=== PATIENT | male | born 1950 | race Caucasian/White ===

== ENCOUNTER 2024-07-29 08:21 | Outpatient (CLI) | payer MEDICARE, SELFPAY ==
--- OUTSIDE RECORDS SUMMARY | 2024-07-29 08:31 | XMS_ITS | Clinical Summary ---
Author Organization [email or web address] Address [address] [facility] [place] [address] Care Team Providers Care Help Desk Supervisor Name Role Phone Franck Ruvalcaba MD Unavailable [phone] Johan Montiel MD Primary Care Provider Source Comments [facility],non-owned Affiliates and Associated Physician Practices is amultiple site organization consisting of ambulatory clinics and hospital sitesin [place], [place], [place] and [place]. This disclosure is being madepursuant to the Care Everywhere program and may not contain all information available regarding this patient. Last updated 18.[facility] Allergies Active Allergy Reactions Criticality Noted Date Comments Penicillins Rash Medium 07/27/2018 Medications * Be aware that medications may not be up to date on this document. Alwaysverify current medications with the patient. Medication Sig Dispensed Refills Start Date End Date Status fluticasone-salmetero l (ADVAIR) 250-50 MCG/DOSE inhaler Inhale 1 puff by mouth 2 times daily Active albuterol HFA (PROVENTIL;VENTOLIN;P ROAIR) 108 (90 Base) MCG/ACT inhaler 10/26/2020 Active fluticasone propionate (FLONASE) 50 MCG/ACT nasal spray 11/30/2020 Active carvedilol (COREG) 6.25 MG tablet TAKE ONE TABLET BY MOUTH TWICE A DAY 180 tablet 3 01/09/2021 Active lisinopril (PRINIVIL;ZESTRIL) 5 MG tablet Take 0.5 (one-half) tablet by mouth 2 times daily 90 tablet 3 01/08/2021 Active rivaroxaban (XARELTO) 20 MG tablet Take 1 (one) tablet by mouth daily with food 30 tablet 1 05/26/2021 Active Active Problems Problem Noted Date Diagnosed Date A-fib Non-ischemic cardiomyopathy Persistent atrial fibrillation Immunizations Name Administration Dates Next Due Covid Pfizer primary monoval ent 12+ yr 0.3mL Purple cap 07/19/2020,06/21/2020 Family History Medical History Relation Name Comments High Cholesterol Father High Cholesterol Mother CAD (Coronary Artery Disease) Paternal Grandfather Relation Name Status Comments Father valve replaceme nt Maternal Grandfather Maternal Grandmother Mother Paternal Grandfather (Age 71) PR Paternal Grandmother Social History Tobacco Use Types Packs/Day Years Used Date Smoking Tobacco: Former Cigarettes Q uit: 09/25/2019 Smokeless Tobacco: Never Tobacco Cessation:Ready to Q uit: Yes; Counseling Given: Yes Alcohol Use Standard Drinks/Week Comments Yes 0 (1 standard drink = 0.6 oz pur e alcohol) Occasional Sex and Gender Information Value Date Recorded Sex Assigned at Not on file Gender Identity Not on file Sexual Orientation Not on file Last Filed Vital Signs Vital Sign Reading Time Taken Comments Blood Pressure 90/60 12/19/2020 3:46 PM CDT Pulse 82 12/19/2020 3:46 PM CDT Temperature 36.3 C (97.3 F) 12/19/2020 3:46 PM CDT Respiratory Rate 10 10/14/2018 9:30 AM CDT Oxygen Saturation 99% 12/19/2020 3:46 PM CDT Inhaled Oxygen Concentration - - Weight 80.5 kg (177 lb 6.4 oz) 12/19/2020 3:46 P M CDT Height 172.7 cm (5' 8 ) 12/19/2020 3:46 PM CDT Body Mass Index 26.97 12/19/2020 3:46 PM CDT Plan of Treatment Health Maintenance Due Date Last Done Comments COLOGUARD (AGES 45-75) - COL ON CA SCREENING 1950 COLON MONITORING 1950 COLONOSCOPY - COLON CA SCREENING 1950 CT COLONOGRAPHY - COLON CA SCREENING 1950 Colorectal Cancer Screening 1950 FIT - COLON CA SCREENING 1950 FLEX SIG - COLON CA SCREENING 1950 LIPID TESTING 1950 MEDICARE AWV 12 MONTHS 1950 HEPATITIS C SCREENING 03/11/1968 DTAP/TDAP/TD VACCINES (1 - Tdap) 1969 PNEUMOCOCCAL VACCINE 50+ (1 of 1 - PCV) 2000 ZOSTER VACCINE (1 of 2) 2000 AAA SCREENING 2015 SCREENING FOR DIABETES 10/14/2021 9, 08/12/2018 COVID-19 VACCINE (3 - 2023-2 5 season) 2023 07/19/2020, 06/21/2020 INFLUENZA VACCINE (#1) 2023 DEPRESSION SCREENING 04/26/2024 Respiratory Syncytial Virus (RSV) Vaccine Pt: or over 60 yrs (1 - 1-dose 75+ series) 2025 HEPATITIS B VACCINE Aged Out No longe r eligible based on patient's age to complete this topic HIB VACCINE Aged Out No longer eligi ble based on patient's age to complete this topic HPV VACCINE Aged Out No longer eligi ble based on patient's age to complete this topic MENINGOCOCCAL (Group B) VACCINE SHARED DECISION-MAKING Aged Out No longer eligible based on patient's age to complete this topic MENINGOCOCCAL GROUPS A/C/Y/W VACCINE Aged Out No longer eligible b ased on patient's age to complete this topic Procedures Procedure Name Priority Date/Time Associated Diagnosis Comments BASIC METABOLIC PANEL (CALCIUM TOTAL) STAT 10/14/2018 7:26 AM CDT Atrial fibrillation, unspecified type from Last 3 Months or Most Recently Relevant to Health Maintenance Results * (ABNORMAL) BASIC METABOLIC PANEL (CALCIUM TOTAL) (10/14/2018 7:26 AM CDT) [facility] Glucose 99 74 - 106 mg/dL 10/14/2018 8:03 AM CDT [facility] Sodium 141 136 - 145 mmol/L 10/14/2018 8:03 AM CDT [facility] Potassium 4.2 3.5 - 5.1 mmol/L 10/14/2018 8:03 AM T [facility] Chloride 108(H) 98 - 107 mmol/L 10/14/2018 8:03 AM T [facility] CO2 23 23 - 31 mmol/L 10/14/2018 8:03 AM T [facility] Calcium 9.6 8.4 - 10.2 mg/dL 10/14/2018 8:03 AM CDT [facility] Anion Gap 10 8 - 16 mmol/L 10/14/2018 8:03 AM CDT [facility] BUN 16 8.4 - 25.7 mg/dL 10/14/2018 8:03 AM CDT [facility] Creatinine 0.93 0.73 - 1.18 mg/dL 10/14/2018 8:03 AM CDT [facility] eGFR by MDRD >60 >60 mL/min/1.7 3m2 10/14/2018 8:03 AM CDT [facility] eGFR by MDRD >60 >60 mL/min/1.7 3m2 10/14/2018 8:03 AM CDT [facility] Blood BLOOD SPECIMEN / Unknown Venipuncture / Unknown 10/14/2018 7:26 AM CDT 10/14/2018 7:39 AM CDT Narrative [facility] - 10/14/2018 8:03 AM CDT Attention clinician: BUN Reference Range has changed. Franck Ruvalcaba MD LAB - CHEMISTRY KRISTINA CROSS [facility] Organization Address City/State/ZIP Co de Phone Number [facility] [address] [place] [address] from Last 3 Months or Most Recently Relevant to Health Maintenance Advance Directives * Full Code (Latest Code Status on File) Date Activated Date Inactivated Comments 08/12/2018 9:51 AM 08/12/2018 1:45 PM Care Teams Help Desk Supervisor Relationship Specialty Start Date End Date Johan Montiel MD [address] [place] [address] PCP - General Family Medicine 06/24/20 Franck Ruvalcaba MD Housing Property Manager Cardiology 01/19/19
--- OUTSIDE RECORDS SUMMARY | 2024-07-29 08:31 | XMS_ITS | Encounter Summary ---
Author Organization [facility] Address [address] [facility] [facility] [place] [address] Care Team Providers Care Beef Cattle Specialist Name Role Phone Bobby Wilkins MD Primary Care Provider [phone] Franck Ruvalcaba MD Unavailable [phone] Johan Montiel MD Primary Care Provider [phone] Encounter Details Date Type Department Care Team (Late st Contact Info) Description 01/02/2020 Telephone [facility] [address] [place] [address] Franck Ruvalcaba MD [address] [facility] [address] [place] [address] Social History Tobacco Use Types Packs/Day Years Used Date Smoking Tobacco: Former Cigarettes Q uit: 09/25/2019 Smokeless Tobacco: Never Alcohol Use Standard Drinks/Week Comments Yes 0 (1 standard drink = 0.6 oz pur e alcohol) Occasional Sex and Gender Information Value Date Recorded Sex Assigned at Not on file Gender Identity Not on file Sexual Orientation Not on file COVID-19 Exposure Response Date Recorded In the last month, have you been in contact with someone who was confirmed or suspected to have Coronavirus / COVID-19? No / Unsure 12/22/2019 3:26 PM CDT documented as of this encounter Plan of Treatment Not on file documented as of this encounter Visit Diagnoses Not on filedocumented in this encounter Care Teams Beef Cattle Specialist Relationship Specialty Start Date End Date Bobby Wilkins MD [address] [place] [phone] PCP - General Family Medicine 07/20/18 06/23/20 Johan Montiel MD [address] [place] [phone] PCP - General Family Medicine 06/24/20 Franck Ruvalcaba MD [address] [place] [phone] Online Marketing Specialist Cardiology 01/19/19 documented as of this encounter
--- OUTSIDE RECORDS SUMMARY | 2024-07-29 08:31 | XMS_ITS | Data Portability ---
Author Organization [facility], [address] [facility] ([place]) Address [address] [place] [address] Care Team Providers Care Team Assembly Line Machine Operator Name Role Phone JACKSON GUTIÉRREZ Primary Care Provider Assessment Encounter Date Assessment Date Assessment LastModified by Organization Details LastModified Time 05/25/2024 05/25/2024 1. The following diagnosis is categorized as a CHRONIC ILLNESS (STABLE/At Pt Goal): Benign nevi. We discussed the importance of watching for new and/or changing lesions. We discussed the worrisome changes to watch for that could indicate a melanoma. We discussed the importance of photoprotection using protective clothing and sunscreen with OTC SPF 30 or higher. Avoid peak hours of sun exposure (10am-3pm). We discussed the importance of regular self-skin examinations. 2. The following diagnosis is categorized as a SELF-LIMITED OR MINOR PROBLEM: We discussed the fact that lentigines are actinically induced and that they are benign. We discussed the fact that they should be watched carefully for change. We discussed the importance of photoprotection using protective clothing and sunscreen with SPF thirty or higher on a regular basis. 3. The following diagnosis is categorized as a SELF LIMITED OR MINOR PROBLEM: Seborrheic keratoses: We discussed the fact that these are benign lesions requiring no treatment. We discussed the fact that removal would be considered a cosmetic procedure and would not be covered by insurance. The patient was advised that more such lesions may develop. The patient is not bothered by the lesions and does not wish to have them treated. We will observe. OTC tx for SK: wart removers, dermabrasion, 35% hydrogen peroxide daily with paint or makeup brush. 4. The following diagnosis is categorized as a CHRONIC ILLNESS : History of non-melanoma skin cancer. We discussed the importance of regular skin examinations by a physician as well as monthly self-skin examinations. No evidence of recurrence in previously treated areas. We discussed the worrisome changes to watch for in skin lesions. We discussed the importance of watching for new and/or changing lesions. We discussed the importance of photoprotection using protective clothing and sunscreen with SPF 30 or higher. Pt was instructed to call the office if develops a lesion which grows or changed rapidly. rtc: 6 months tbs nmsc or sooner prn [email or web address] Not available 05/28/2024 11:16:32 Plan of Treatment Reminders Order Date Submit Date Provider Last Modified By Organization Details Last Modified Time Details Appointments Establish ed Patient 10.EST 2024 01:20P M Dr. Alina Garzon Not available Not available Not available Lab None recorded. Referral None recorded. Procedures None recorded. Surgeries None recorded. Imaging None recorded. Medication Orders clobetaso l 0.05 % topical ointment 2023 024 [email or web address] [facility] [address], [id number], 11/01/2023 15:46:51 Patient TargetsNo targets recorded. Patient Instructions Encounter Date Encounter Id Patient Instructions Last Modified By Organization Details Last Modified Time 11/01/2023 [id number] I asked pt to return 6 month TBSE/nmsc with MD. Pt will call with any questions or concerns in the meantime. [email or web address] Not available 11/01/2023 15:43:57 Reason for Referral None Reported. Problems Name Problem SNOMED Code Status Onset Date Resolution Date Notes Provider Name and Address Organization Details Recorded Time Melanocytic nevus of left lower limb 3607430137245 06 Active 2024 Carly Mena [facility] 5 16:30:57 Atopic dermatitis 22191872 Active 2023 Jessika Quiroz [facility], [facility] 4 15:17:07 Melanocytic nevus of right upper limb 489214024 Active 2023 Carly Mena [facility] 5 16:30:50 Melanocytic nevus of right lower limb 8069718936379 08 Active 2023 Alina Stanford APRN, OFFICE MACHINES TEACHER [address] [place] [address], [phone], [facility] 4 15:41:34 Seborrheic keratosis 296599628 Active 2023 Carly Mena [facility] 5 16:30:59 Lentigo - freckle 346495846 Active 2023 Alina Stanford APRN, OFFICE MACHINES TEACHER [address] [place], [phone], [facility] 4 15:41:39 Problem Notes None recorded. Medical Equipment None Reported. Allergies Allergen ID Allergen Name Allergen Category Reaction Reaction Severity Criticality Documentation Date Start Date Code Code System Note Provider Name and Address Organization Details Recorded Time 559072 Penicilli n Not available Not available Not available Not available 05/24/20232019 97457 RxNorm Not Available Not Available Not Available Medications Name Sig Start Date Stop Date Status Note LastModified by Organization Details LastModified Time carvedilol 6.25 mg tablet active Not Available Not Available Not Available prednisone 10 mg tablet active Not Available Not Available No t Available doxycycline hyclate 100 mg capsule active Not Available Not Available N ot Available clindamycin HCl 300 mg capsule active Not Available Not Available Not Available fluticasone 500 mcg-salmetero l 50 mcg/dose blistr powdr for inhalation active Not Available Not Available N ot Available montelukast 10 mg tablet active Not Available Not Available Not Available lisinopril 5 mg tablet active Not Available Not Available No t Available clobetasol 0.05 % topical ointment APPLY A THIN LAYER TO THE AFFECTED AREA(S)on both legs as needed for flare ups for 1 to 2 weeks then one week off. Do not apply to face, axilla or groin. 2023 active Not Available Not Available Not Avai lable albuterol sulfate HFA 90 mcg/actuation aerosol inhaler active Not Available Not Available Not Available Xarelto 20 mg tablet active Not Available Not Available Not Available Farxiga 10 mg tablet active Not Available Not Available Not Available Paxlovid 300 mg (150 mg x 2)-100 mg tablets in a dose pack USE DIRECTED ON PACKAGE active Not Available Not Available N ot Available Vitals Date Recorded Body weight Provider Name an d Address Organization Details Last Updated DateTime 11/01/2023 83818.7 g Jessika Quiroz [facility] 11/01/2023 14:40:17 Social History Question Answer Notes LastModified by Organizat ion Details LastModified Time Do You Have An Advance Directive? No [email or web address] Information not available 11/01/2023 What Is Your Level Of Alcohol Consumption? Occasional [email or web address] Information not available 11/01/2023 How Many Times Per Week Do You Consume Alcohol? 1-2 Times Per Week [email or web address] Information not available 11/01/2023 What Is Your Level Of Caffeine Consumption? Occasional [email or web address] Information not available 11/01/2023 Are You Currently Employed? 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 5-7 Times Per Week [email or web address] Information not available 11/01/2023 When Did You Quit Smoking? 2020 [email or web address] Information not available 11/01/2023 Do You Have A Medical Power Of Field Rep? Yes [email or web address] Information not available 11/01/2023 What Was The Date Of Your Most Recent Tobacco Screening? 11/01/2023 [email or web address] Information not available 11/01/2023 What Is Your Relationship Status? [email or web address] Information not available 11/01/2023 Do You Use Any Illicit Or Recreational Drugs? No [email or web address] Information not available 11/01/2023 Sex: Unknown Functional Status Question Answer Note LastModified by Organization D etails LastModified Time What is your exercise level? Heavy [email or web address] Information not available 11/01/2023 Mental Status None recorded. Family History Relationship Description Onset Age of this Age Resolved Age Notes LastModified by Organization Details LastModified Time Father Heart disease [email or web address] Not available 2023 12:43:38 Paternal Grandfather Heart disease [email or web address] Not available 2023 12:43:39 Medical History Condition Response Diabetes N Anxiety Disorder N Bleeding Disorder N Attention-deficit Hyperactivity Disorder N High Blood Pressure N Arthritis N Hyperlipidemia N Cancer N Stroke N Thyroid Problems N Asthma N Depression N COPD N Anemia N Seizures N Heart Disease Y Fibromyalgia N Osteoporosis N Kidney Disease N Past Encounters Encounter ID Performer Location Encounter Start Date Encounter Closed Date Diagnosis/Indication Diagnosis SNOMED-CT Code Diagnosis ICD10 Code Diagnosis Note [id number] Alina Garzon MD [facility] ([place]) [address] [place] [address] 11/01/2023 14:27:42 11/01/2023 15:00:22 History of malignant neoplasm of skin excluding melanoma 907855118 Z85.828 The following diagnosis is categorize d as a CHRONIC ILLNESS (STABLE/At Pt Goal) History of non-melano ma skin cancer. We discussed the importance of regular skin examinatio ns by a physician as well as monthly self skin examinatio ns. No evidence of recurrence in previously treated areas. We discussed the worrisome changes to watch for in skin lesions. We discussed the importance of watching for new and/or changing lesions. We discussed the importance of photoprote ction using protective clothing and sunscreen with SPF thirty or higher. Pt was instructed to call the office if develops a lesion which grows or changed rapidly. Atopic dermatitis 664942 01 L20.9 The following is a chronic illness (stable, at goal): Nummular Eczema of trunk/extr emities: Reviewed diagnoses and treatment - Recommend short, luke warm baths daily. Right when get out of bath, pat dry and apply a bland moisturize r to entire body(ideal ly, vaseline or petroleum jelly however if greasiness is bothersome , use a cream based moisturize r (not a lotion) such as CeraVe/Euc geovanni/Vanic ream. - Recommend applying a moisturize r (as detailed above) to entire body twice a day-stress ed importance of this to avoid flaring - Recommend dove unscented white soap only. Avoid harsh soaps such as Greek [place] - Avoid fragrance products, perfumes - Recommend humidifier -advised to start this over winter - Avoid hand-washi ng as much as possible, only wash when soiled,mamta id hand sanitizers , avoid harsh cleaning chemicals, paints, etc. when possible. If have to be exposed, recommend wearing gloves. - For flares, restart RX clobetasol 0.05% ointment twice a day to affected areas for 1-2 weeks with a 1 week break, repeat as needed (do not use on face/axill a/groin). Once skin is no longer red, raised, and itching just use for flares. Warned of risk of skin thinning with improper use of topical steroids. - Continue 1-2 tablets Zyrtec daily as needed for itching , pt had sedation with hydroxyzin e (avoid in the future). treated with IMK in the past, helped, no need to repeat at this time. Melanocyti c nevus of right upper limb 222946646 D22.61 The following diagnosis is categorize d as a CHRONIC ILLNESS (STABLE/At Pt Goal): Benign nevi. We discussed the importance of watching for new and/or changing lesions. We discussed the worrisome changes to watch for that could indicate a melanoma. We discussed the importance of photoprote ction using protective clothing and sunscreen with OTC SPF thirty or higher. Avoid peak hours of sun exposure (10am-3pm) . We discussed the importance of regular self skin examinatio ns. Melanocyti c nevus of right lower limb [id number] 95298 D22.71 Seborrheic keratosis 394 803996 L82.1 The following diagnosis is categorize d as a SELF LIMITED OR MINOR PROBLEM: Seborrheic keratoses We discussed the fact that these are benign lesions requiring no treatment. We discussed the fact that removal would be considered a cosmetic procedure and would not be covered by insurance. The patient was advised that more such lesions may develop. The patient is not bothered by the lesions and does not wish to have them treated. We will observe. Advised to use a sunscreen of at least SPF 30 and wear protective clothing. Lentigo - freckle 376227 006 L81.4 The following diagnosis is categorize d as a SELF LIMITED OR MINOR PROBLEM: We discussed the fact that lentigines are actinicall y induced and that they are benign. We discussed the fact that they should be watched carefully for change. We discussed the importance of photoprote ction using protective clothing and sunscreen with SPF thirty or higher on a regular basis. [id number] Alina Garzon MD [facility] [address] [facility] [place] [address] 05/25/2024 15:25:08 05/25/2024 17:46:02 Melanocytic nevus of right upper limb 678436582 D22.61 Melanocyti c nevus of left lower limb 8162108698 68038 D22.72 Seborrheic keratosis 394 785926 L82.1 History of malignant neoplasm of skin excluding melanoma 297593469 Z85.828 Health Concerns Section Related Observation LastModified by Organization Detai ls LastModified Time None Recorded Concern Status LastModified by Organization Details LastModified Time None Recorded Advance Directives Directive N: Payers Encounter Date Sequence Insurance Name Policy Number Policy Hough Covered Member ID Hough Member ID Guarantor Name 11/01/2023 1 [employer] (MEDICARE REPLACEMENT PPO) [id number] 1 Harman Velasco [id number] Harman Velasco 05/25/2024 1 [employer] (MEDICARE REPLACEMENT PPO) [id number] Harman Velasco [id number] Harman Velasco Notes Date Note Type Note Provider Name and Address Organization Details Recorded Time 11/01/2023 text/html one year TBSE hx NMSC Patient was informed that Dr. Garzon is the supervising physician for Alina Stanford (Derm) and the physician is available for consultation if needed. Alina Stanford, PRESCHOOL ASSOCIATE TEACHER, OFFICE MACHINES TEACHER [address] [place] [address], [phone], [facility] 11/01/2023 15:44:20 05/25/2024 text/html TBSE/Hx nmscConcerns:None Alina Garzon MD [address] [place] [address], [phone], [facility] 05/28/2024 11:16:39
--- OUTSIDE RECORDS SUMMARY | 2024-07-29 08:31 | XMS_ITS | Clinical Summary ---
Author Organization [facility] D Address [address] [place] [phone] Care Team Providers Care Nurse Advocate Name Role Phone Franck Ruvalcaba MD Unavailable [phone] Johan Montiel MD Primary Care Provider Allergies Active Allergy Reactions Criticality Noted Date Comments Penicillins Hives,Rash Medium 10/04/2015 Medications albuterol HFA (PROVENTIL HFA,VENTOLIN HFA,PROAIR HFA) 90 mcg/actuation inhaler Inhale 2 puffs every 4 (four) hours as needed 04/09/2021 Active montelukast (SINGULAIR) 10 mg tablet Take 1 tablet (10 mg total) by mouth nightly 06/16/2021 Active fluticasone propion-salmete roL (ADVAIR DISKUS) 500-50 mcg/dose diskus inhaler Inhale 1 puff 2 (two) times a day Rinse mouth with water after use. Do not swallow. Active lisinopriL (PRINIVIL,ZESTR IL) 5 mg tablet TAKE ONE HALF TABLET BY MOUTH TWICE A DAY 90 tablet 3 11/02/2023 Active Xarelto 20 mg tablet TAKE ONE TABLET BY MOUTH DAILY 90 tablet 3 12/28/2023 Active Farxiga 10 mg tablet TAKE ONE TABLET BY MOUTH DAILY 30 tablet 11 02/16/2024 Active carvediloL (COREG) 6.25 mg tablet TAKE ONE TABLET BY MOUTH TWICE A DAY 180 tablet 03/06/2024 Active Active Problems Problem Noted Date Diagnosed Date Atrial fibrillation with rapid ventricular respo nse 04/29/2022 Shortness of breath 04/29/2022 RSV (respiratory syncytial virus infection) 07/2022 Hypercalcemia 04/29/2022 Elevated bilirubin 04/29/2022 Tobacco abuse 04/29/2022 Persistent atrial fibrillation 11/18/2021 Non-ischemic cardiomyopathy 11/18/2021 Chronic obstructive pulmonary disease 11/18/2021 Encounters Date Type Department Care Team Description 06/22/2024 Results Follow-Up [facility] Medical [facility] Cardiology [address] [place] [phone] Franck Ruvalcaba MD 06/19/2024 2:55 PM BODY AND FENDER MECHANIC APPRENTICE Lab [facility] [place] [address] Atrial fibrillation with rapid ventricular response (HCC); Benign prostatic hyperplasia without lower urinary tract symptoms; Screening for diabetes mellitus (DM) 06/19/2024 2:30 PM BODY AND FENDER MECHANIC APPRENTICE Office Visit [facility] Cardiology [address] [place] [phone] Franck Ruvalcaba MD Atrial fibrillation with rapid ventricular response (HCC) (Primary Dx); Screening for diabetes mellitus (DM); Benign prostatic hyperplasia without lower urinary tract symptoms from Last 3 Months Surgical History Surgery Date Site/Laterality Comments NO PAST SURGERIES Medical History Medical History Date Comments Persistent atrial fibrillation Non-ischemic cardiomyopathy Chronic obstructive pulmonary disease Atrial fibrillation with rapid ventricular respo nse Hypercalcemia Respiratory syncytial virus infection Shortness of breath Family History Medical History Relation Name Comments Hyperlipidemia Father No Known Problems Maternal Grandfather No Known Problems Maternal Grandmother Hyperlipidemia Mother Coronary artery disease Paternal Grandfather No Known Problems Paternal Grandmother Relation Name Status Comments Father Maternal Grandfather Maternal Grandmother Mother Paternal Grandfather Paternal Grandmother Social History Tobacco Use Types Packs/Day Years Used Date Smoking Tobacco: Former Cigarettes Q uit: 09/25/2019 Smokeless Tobacco: Never Tobacco Cessation:Counseling Given: Not Answered Social Connection and Isolat ion Panel [NHANES] Answer Date Recorded In a typical week, how many times do you talk on the phone with family, friends, or neighbors? More than three times a week 04/30/2022 How often do you get togethe r with friends or relatives? More than three times a week 04/30/2022 How often do you attend chur ch or restoration services? Never 04/30/2022 Do you belong to any clubs o r organizations such as protestant groups, unions, fraternal or athletic groups, or school groups? Yes 04/30/2022 How often do you attend meet ings of the clubs or organizations you belong to? More than 4 times per year 04/30/2022 Are you , , di vorced, , never , or living with a partner? 04/30/2022 Overall Financial Resource Strain (CARDIA) Answe r Date Recorded How hard is it for you to pa y for the very basics like food, housing, medical care, and heating? Not hard at all 04/30/2022 Hunger Vital Sign Answer Date Recorded Within the past 12 months, y ou worried that your food would run out before you got the money to buy more. Never true 04/30/19 23 Within the past 12 months, t he food you bought just didn't last and you didn't have money to get more. Never true 04/30/2022 PRAPARE - Transportation Answer Date Re corded In the past 12 months, has l ack of transportation kept you from medical appointments or from getting medications? No 08/2022 In the past 12 months, has l ack of transportation kept you from meetings, work, or from getting things needed for daily living? 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 Not on file Not on file Not on file Obstetrics History Last Filed Vital Signs Vital Sign Reading Time Taken Comments Blood Pressure 110/68 06/19/2024 2:18 PM BODY AND FENDER MECHANIC APPRENTICE Pulse 76 06/19/2024 2:18 PM BODY AND FENDER MECHANIC APPRENTICE Temperature 36.6 C (97.8 F) 05/03/2022 7:34 AM BODY AND FENDER MECHANIC APPRENTICE Respiratory Rate 18 05/03/2022 7:34 AM BODY AND FENDER MECHANIC APPRENTICE Oxygen Saturation 97% 06/19/2024 2:18 PM BODY AND FENDER MECHANIC APPRENTICE Inhaled Oxygen Concentration - - Weight 78.2 kg (172 lb 6.4 oz) 06/19/2024 2:18 P M BODY AND FENDER MECHANIC APPRENTICE Height 172.7 cm (5' 8 ) 06/19/2024 2:18 PM BODY AND FENDER MECHANIC APPRENTICE Body Mass Index 26.21 06/19/2024 2:18 PM BODY AND FENDER MECHANIC APPRENTICE Plan of Treatment Health Maintenance Due Date Last Done Comments Colon Cancer Screening-Colonoscopy 1950 Depression Screening 1950 Hepatitis C Screening 1950 DTaP/Tdap/Td Vaccine (1 - Tdap) 1961 Hepatitis B Screening 1968 Pneumococcal vaccine 65+ (1 of 2 - PCV) 1969 Zoster Vaccine (1 of 2) 2000 Well Visit 65+ 2015 Fall Risk Assessment 05/03/2023 05/03/2022 Covid-19 Vaccine ( season) 2023 02/15/2021, 07/19/2020, 06/21/2020 Influenza Vaccine (#1) 2023 Abdominal Aortic Aneurysm (A AA) Screen Completed 07/14/2022, 05/27/2022 Procedures Procedure Name Priority Date/Time Associated Diagnosis Comments EGFR Routine 06/19/2024 2:57 PM BODY AND FENDER MECHANIC APPRENTICE Atrial fibrillation with rapid ventricular response (HCC) DIFFERENTIAL AUTO Routine 06/19/2024 2:5 7 PM BODY AND FENDER MECHANIC APPRENTICE Atrial fibrillation with rapid ventricular response (HCC) COMPREHENSIVE METABOLIC PANEL Routine 06/19/2024 2:57 PM BODY AND FENDER MECHANIC APPRENTICE Atrial fibrillation with rapid ventricular response (HCC) CBC WITH AUTO DIFFERENTIAL Routine 06/19/2024 2:57 PM BODY AND FENDER MECHANIC APPRENTICE Atrial fibrillation with rapid ventricular response (HCC) HEMOGLOBIN A1C Routine 06/19/2024 2:57 PM BODY AND FENDER MECHANIC APPRENTICE Atrial fibrillation with rapid ventricular response (HCC) Screening for diabetes mellitus (DM) PSA DIAGNOSTIC Routine 06/19/2024 2:57 PM BODY AND FENDER MECHANIC APPRENTICE Atrial fibrillation with rapid ventricular response (HCC) Benign prostatic hyperplasia without lower urinary tract symptoms TSH Routine 06/19/2024 2:57 PM BODY AND FENDER MECHANIC APPRENTICE Atrial fibrillation with rapid ventricular response (HCC) from Last 3 Months Results * eGFR (06/19/2024 2:57 PM BODY AND FENDER MECHANIC APPRENTICE) Pathologist [facility] eGFR 84 >=60 mL/min/1. 73 m2 Comment: Interpretive Data Reference Interval Normal >/= 90 mL/min/1.73m2 Mildly decreased* 60 - 89 mL/min/1.73m2 Mildly to moderately decreased 45 - 59 mL/min/1.73m2 Moderately to severely decreased 30 - 44 mL/min/1.73m2 Severely decreased 15 - 29 mL/min/1.73m2 Kidney Failure < 15 mL/min/1.73m2 *Relative to young adult level Estimated glomerular filtration rate is determined by the 2020 CKD-EPI equation recommended by the National Kidney Foundation (A Unifying Approach to GFR Estimation: Recommendations of the NKF-ASK Task Force on Reassessing the Inclusion of Race in Diagnosing Kidney Disease, JASN 2020). The CKD-EPI equation should not be used for patients with unstable renal function and has not been validated in children and those over 70. Current interpretive data was last reviewed 2021. Blood 06/19/2024 2:57 PM BODY AND FENDER MECHANIC APPRENTICE 06/19/2024 3:23 PM BODY AND FENDER MECHANIC APPRENTICE us Franck Ruvalcaba MD LAB BLOOD ORDERABLES Fin al Result [facility] [address] Department [place] [address] * Differential, auto (06/19/2024 2:57 PM BODY AND FENDER MECHANIC APPRENTICE) [facility] [place] Neutrophil abs 3.5 1.5 - 6.5 K/cumm Imm gran abs 0.0 0.0 - 0.1 K/cumm [facility] Lymphocyte abs 2.4 0.8 - 3.3 K/cumm [facility] Monocyte abs 0.8 0.2 - 0.8 K/cumm [facility] Eosinophil abs 0.2 0.0 - 0.5 K/cumm [facility] Basophil abs 0.1 0.0 - 0.1 K/cumm [facility] Neutrophil pct 50.6 % [facility] Comment: Interpretive Data Percent cell count reference ranges are not reported, since discordance with absolute values may lead to misinterpretation of CBC data. Current Interpretive Data was last revised on 2017. Imm gran pct 0.1 % [facility] Comment: Interpretive Data Percent cell count reference ranges are not reported, since discordance with absolute values may lead to misinterpretation of CBC data. Current Interpretive Data was last revised on 2017. Lymphocyte pct 34.3 % [facility] Comment: Interpretive Data Percent cell count reference ranges are not reported, since discordance with absolute values may lead to misinterpretation of CBC data. Current Interpretive Data was last revised on 2017. Monocyte pct 11.8 % [facility] Comment: Interpretive Data Percent cell count reference ranges are not reported, since discordance with absolute values may lead to misinterpretation of CBC data. Current Interpretive Data was last revised on 2017. Eosinophil pct 2.3 % [facility] Comment: Interpretive Data Percent cell count reference ranges are not reported, since discordance with absolute values may lead to misinterpretation of CBC data. Current Interpretive Data was last revised on 2017. Basophil pct 0.9 % [facility] Comment: Interpretive Data Percent cell count reference ranges are not reported, since discordance with absolute values may lead to misinterpretation of CBC data. Current Interpretive Data was last revised on 2017. Blood 06/19/2024 2:57 PM BODY AND FENDER MECHANIC APPRENTICE 06/19/2024 3:23 PM BODY AND FENDER MECHANIC APPRENTICE Franck Ruvalcaba MD LAB BLOOD ORDERABLES Fin al Result [facility] [address] Department [place] [address] * CBC with auto differential (06/19/2024 2:57 PM BODY AND FENDER MECHANIC APPRENTICE) WBC 6.9 3.8 - 9.9 K/cumm Hgb 14.1 13.0 - 17.5 g/dL [facility] Hct 42.3 38.9 - 50.3 % [facility] Plt 162 150 - 400 K/cumm [facility] MPV 9.6 9.1 - 12.3 fL [facility] RBC 4.54 4.30 - 5.80 M/cumm [facility] MCV 93.2 81.3 - 96.4 fL [facility] MCH 31.1 27.1 - 33.3 pg [facility] MCHC 33.3 32.3 - 35.7 g/dL [facility] RDW CV 12.9 11.1 - 14.9 % [facility] RDW SD 44.0 35.7 - 48.1 fL [facility] NRBC abs 0.00 0.00 - 0.01 K/cumm [facility] Blood 06/19/2024 2:57 PM BODY AND FENDER MECHANIC APPRENTICE 06/19/2024 3:23 PM BODY AND FENDER MECHANIC APPRENTICE Franck Ruvalcaba MD LAB BLOOD ORDERABLES Fin al Result Performing Organization Address [facility] Co de Phone Number [facility] [address] [facility] [place] [place] [address] * TSH (06/19/2024 2:57 PM BODY AND FENDER MECHANIC APPRENTICE) Thyroid Stimulating Hormone 0.95 0.30 - 4.20 mcIUnit/mL Blood 06/19/2024 2:57 PM BODY AND FENDER MECHANIC APPRENTICE 06/19/2024 3:23 PM BODY AND FENDER MECHANIC APPRENTICE Franck Ruvalcaba MD LAB BLOOD ORDERABLES Fin al Result Performing Organization Address City/[facility] Co de Phone Number [facility] [address] [facility] [place] [address] * PSA diagnostic (06/19/2024 2:57 PM BODY AND FENDER MECHANIC APPRENTICE) PSA-Total 4.82 <=6.20 ng/mL Comment: Interpretive Data AGE SEX REFERENCE INTERVAL 0 minutes-150 years Female None 0 minutes-49 years Male None 50-59 years Male 0-3.90 60-69 years Male 0-5.40 70-79 years Male 0-6.20 80-150 years Male 0-6.20 The Trace PSA Total assay procedure was used. Results from different manufacturers or methods may not be comparable. Serial testing should be performed using the same method. Current interpretive data last revised 21. Blood 06/19/2024 2:57 PM BODY AND FENDER MECHANIC APPRENTICE 06/19/2024 3:23 PM BODY AND FENDER MECHANIC APPRENTICE Franck Ruvalcaba MD LAB BLOOD ORDERABLES Fin al Result Performing Organization Address [facility] Co de Phone Number [facility] [address] [facility] [place] [address] * (ABNORMAL) Hemoglobin A1c (06/19/2024 2:57 PM BODY AND FENDER MECHANIC APPRENTICE) Hgb A1C 5.8(H) 4.0 - 5.6 % Estimated Average Glucose 120 mg/dL [facility] Comment: The ADA recommends reporting an estimated Average Glucose (eAG) with all Hemoglobin A1c results using the equation derived from a study of 507 normal and diabetic adults. Minority populations were underrepresented and children were not included. (Diabetes Care 31:8070-9584, 2008). The eAG is not equivalent to a fasting glucose. Blood 06/19/2024 2:57 PM BODY AND FENDER MECHANIC APPRENTICE 06/19/2024 3:23 PM BODY AND FENDER MECHANIC APPRENTICE Franck Ruvalcaba MD LAB BLOOD ORDERABLES Fin al Result Performing Organization Address [facility] Co de Phone Number [facility] [address] [facility] [address] * Comprehensive metabolic panel (06/19/2024 2:57 PM BODY AND FENDER MECHANIC APPRENTICE) Pathologist [facility] Sodium 141 135 - 145 mmol/L Potassium, pl 4.3 3.3 - 4.9 mmol/L [facility] Chloride 106 97 - 110 mmol/L [facility] CO2 23 22 - 32 mmol/L [facility] Anion gap 12 2 - 15 mmol/L [facility] BUN 12 6 - 25 mg/dL [facility] Creatinine 0.95 0.80 - 1.30 mg/dL [facility] Glucose 96 70 - 199 mg/dL [facility] Comment: Interpretive Data Fasting glucose >/= 126 mg/dl is diagnostic for diabetes. Fasting is defined as no caloric intake for at least 8 hours. Fasting glucose between 100 mg/dl to 125 mg/dl is diagnostic of prediabetes. In a patient with classic symptoms of hyperglycemia or hyperglycemic crisis, a random glucose >/= 200 mg/dl is diagnostic for diabetes. In the absence of unequivocal hyperglycemia, results should be confirmed by repeat testing. The classification and Diagnosis of Diabetes Diabetes Care 2021; 46: S19-S40. Current interpretive data was last revised 2022. Calcium 9.6 8.5 - 10.3 mg/dL [facility] Bilirubin, total 0.8 0.1 - 1.2 mg/dL [facility] Protein, pl 6.8 6.5 - 8.5 g/dL [facility] Albumin 4.1 3.5 - 5.0 g/dL [facility] Alk phos 68 40 - 130 Units/L [facility] ALT 17 7 - 55 Units/L [facility] AST 19 10 - 50 Units/L [facility] Comment:Slightly Hemolyzed S pecimen Blood 06/19/2024 2:57 PM BODY AND FENDER MECHANIC APPRENTICE 06/19/2024 3:23 PM BODY AND FENDER MECHANIC APPRENTICE Franck Ruvalcaba MD LAB BLOOD ORDERABLES Fin al Result [facility] [address] Department [place] [address] from Last 3 Months Insurance [facility] MEDICARE [facility] MEDICARE Address: [facility] [id number] [place] [address] [facility] MEDICARE MEDICARE FORMERLY [facility], 1928–1983 [id number] Advance Directives For more information, please contact: [phone] * Full Code (Latest Code Status on File) Date Activated Date Inactivated Comments 04/30/2022 3:22 AM 05/03/2022 5:32 PM Care Teams Nurse Advocate Relationship Specialty Start Date End Date Johan Montiel MD [address] [place] [address] PCP - General Family Medicine 06/16/21 Franck Ruvalcaba MD [id number] [address] Animal Care Assistant Cardiology 10/29/21
--- OUTSIDE RECORDS SUMMARY | 2024-07-29 08:31 | XMS_ITS | Referral Summary ---
Author Organization [facility] Address [address] [place] [phone] Care Team Providers Care Well Control Instructor Name Role Phone Franck Ruvalcaba MD Unavailable [phone] Johan Montiel MD Primary Care Provider Encounters Date Type Department Care Team Description 06/22/2024 Results Follow-Up [facility] Cardiology [address] [place] [phone] Franck Ruvalcaba MD 06/19/2024 2:55 PM GARAGE HAND Lab [facility] [address] [place] [address] Atrial fibrillation with rapid ventricular response (HCC); Benign prostatic hyperplasia without lower urinary tract symptoms; Screening for diabetes mellitus (DM) 06/19/2024 2:30 PM GARAGE HAND Office Visit [facility] Cardiology [address] [place] [phone] Franck Ruvalcaba MD Atrial fibrillation with rapid ventricular response (HCC) (Primary Dx); Screening for diabetes mellitus (DM); Benign prostatic hyperplasia without lower urinary tract symptoms from Last 3 Months Allergies Active Allergy Reactions Criticality Noted Date [...] cardiomyopathy 11/18/2021 Chronic obstructive pulmonary disease 11/18/2021 Social History Tobacco Use Types Packs/Day Years [...] 04/30/2022 How often do you attend chur or jehovah's witness services? 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 Not on file Not on file Not on file Last Filed Vital Signs Vital Sign Reading Time Taken Comments Blood Pressure 110/68 06/19/2024 2:18 PM GARAGE HAND Pulse 76 06/19/2024 2:18 PM GARAGE HAND Temperature 36.6 C (97.8 F) 05/03/2022 7:34 AM GARAGE HAND Respiratory Rate 18 05/03/2022 7:34 AM GARAGE HAND Oxygen Saturation 97% 06/19/2024 2:18 PM GARAGE HAND Inhaled Oxygen Concentration - - Weight 78.2 kg (172 lb 6.4 oz) 06/19/2024 2:18 P M GARAGE HAND Height 172.7 cm (5' 8 ) 06/19/2024 2:18 PM GARAGE HAND Body Mass Index 26.21 06/19/2024 2:18 PM GARAGE HAND Plan of Treatment Not on file Procedures Procedure Name Priority Date/Time Associated Diagnosis Comments EGFR Routine 06/19/2024 2:57 PM GARAGE HAND Atrial fibrillation with rapid ventricular response (HCC) DIFFERENTIAL AUTO Routine 06/19/2024 2:5 7 PM GARAGE HAND Atrial fibrillation with rapid ventricular response (HCC) COMPREHENSIVE METABOLIC PANEL Routine 06/19/2024 2:57 PM GARAGE HAND Atrial fibrillation with rapid ventricular response (HCC) CBC WITH AUTO DIFFERENTIAL Routine 06/19/2024 2:57 PM GARAGE HAND Atrial fibrillation with rapid ventricular response (HCC) HEMOGLOBIN A1C Routine 06/19/2024 2:57 PM GARAGE HAND Atrial fibrillation with rapid ventricular response (HCC) Screening for diabetes mellitus (DM) PSA DIAGNOSTIC Routine 06/19/2024 2:57 PM GARAGE HAND Atrial fibrillation with rapid ventricular response (HCC) Benign prostatic hyperplasia without lower urinary tract symptoms TSH Routine 06/19/2024 2:57 PM GARAGE HAND Atrial fibrillation with rapid ventricular response (HCC) from Last 3 Months Results * eGFR (06/19/2024 2:57 PM GARAGE HAND) eGFR 84 >=60 mL/min/1. 73 m2 Comment: [...] last reviewed 2021. Blood 06/19/2024 2:57 PM GARAGE HAND 06/19/2024 3:23 PM GARAGE HAND us Franck Ruvalcaba MD LAB BLOOD ORDERABLES Fin al Result [facility] [address] Department [place] [address] * Differential, auto (06/19/2024 2:57 PM GARAGE HAND) Neutrophil abs 3.5 1.5 - 6.5 K/cumm Imm gran abs 0.0 0.0 - 0.1 K/cumm [facility] Lymphocyte abs 2.4 0.8 - 3.3 K/cumm [facility] Monocyte abs 0.8 0.2 - 0.8 K/cumm [facility] Eosinophil abs 0.2 0.0 - 0.5 K/cumm [facility] Basophil abs 0.1 0.0 - 0.1 K/cumm [facility] Neutrophil pct 50.6 % [facility] Comment: Interpretive Data Percent cell count reference ranges are not reported, since discordance with absolute values may lead to misinterpretation of CBC data. Current Interpretive Data was last revised on 2017. Imm gran pct 0.1 % [facility] Comment: Interpretive Data Percent cell count reference ranges are not reported, since discordance with absolute values may lead to misinterpretation of CBC data. Current Interpretive Data was last revised on 2017. Lymphocyte pct 34.3 % [facility] Comment: Interpretive Data Percent cell count reference ranges are not reported, since discordance with absolute values may lead to misinterpretation of CBC data. Current Interpretive Data was last revised on 2017. Monocyte pct 11.8 % [facility] Comment: Interpretive Data Percent cell count reference ranges are not reported, since discordance with absolute values may lead to misinterpretation of CBC data. Current Interpretive Data was last revised on 2017. Eosinophil pct 2.3 % [facility] Comment: Interpretive Data Percent cell count reference ranges are not reported, since discordance with absolute values may lead to misinterpretation of CBC data. Current Interpretive Data was last revised on 2017. Basophil pct 0.9 % [facility] Comment: Interpretive Data Percent cell count reference ranges are not reported, since discordance with absolute values may lead to misinterpretation of CBC data. Current Interpretive Data was last revised on 2017. Blood 06/19/2024 2:57 PM GARAGE HAND 06/19/2024 3:23 PM GARAGE HAND Franck Ruvalcaba MD LAB BLOOD ORDERABLES Fin al Result Performing Organization Address City/[facility]/ZIP Co de Phone Number [facility] [address] [place] [address] * CBC with auto differential (06/19/2024 2:57 PM GARAGE HAND) WBC 6.9 3.8 - 9.9 K/cumm Hgb 14.1 13.0 - 17.5 g/dL [facility] Hct 42.3 38.9 - 50.3 % [facility] Plt 162 150 - 400 K/cumm [facility] MPV 9.6 9.1 - 12.3 fL [facility] RBC 4.54 4.30 - 5.80 M/cumm [facility] MCV 93.2 81.3 - 96.4 fL [facility] MCH 31.1 27.1 - 33.3 pg [facility] MCHC 33.3 32.3 - 35.7 g/dL [facility] RDW CV 12.9 11.1 - 14.9 % [facility] RDW SD 44.0 35.7 - 48.1 fL [facility] NRBC abs 0.00 0.00 - 0.01 K/cumm [facility] Blood 06/19/2024 2:57 PM GARAGE HAND 06/19/2024 3:23 PM GARAGE HAND Franck Ruvalcaba MD LAB BLOOD ORDERABLES Fin al Result [facility] [address], [place] [id number] * TSH (06/19/2024 2:57 PM GARAGE HAND) Thyroid Stimulating Hormone 0.95 0.30 - 4.20 mcIUnit/mL Blood 06/19/2024 2:57 PM GARAGE HAND 06/19/2024 3:23 PM GARAGE HAND Franck Ruvalcaba MD LAB BLOOD ORDERABLES Fin al Result [facility] [address] Department [place] [address] * PSA diagnostic (06/19/2024 2:57 PM GARAGE HAND) Pathologist [facility] PSA-Total 4.82 <=6.20 ng/mL Comment: Interpretive Data [...] last revised 21. Blood 06/19/2024 2:57 PM GARAGE HAND 06/19/2024 3:23 PM GARAGE HAND Franck Ruvalcaba MD LAB BLOOD ORDERABLES Fin al Result [facility] [address] Department [place] [address] * (ABNORMAL) Hemoglobin A1c (06/19/2024 2:57 PM GARAGE HAND) Pathologist [facility] Hgb A1C 5.8(H) 4.0 - 5.6 % Estimated Average Glucose 120 mg/dL [facility] Comment: The ADA recommends reporting an estimated Average Glucose (eAG) with all Hemoglobin A1c results using the equation derived from a study of 507 normal and diabetic adults. Minority populations were underrepresented and children were not included. (Diabetes Care 31:4789-0466, 2008). The eAG is not equivalent to a fasting glucose. Blood 06/19/2024 2:57 PM GARAGE HAND 06/19/2024 3:23 PM GARAGE HAND Result [facility] Franck Ruvalcaba MD LAB BLOOD ORDERABLES Fin al Result Performing Organization Address City/State/[facility] Co de Phone Number [facility] [address] Department [place] [address] * Comprehensive metabolic panel (06/19/2024 2:57 PM GARAGE HAND) Sodium 141 135 - 145 mmol/L Potassium, pl 4.3 3.3 - 4.9 mmol/L [facility] Chloride 106 97 - 110 mmol/L [facility] CO2 23 22 - 32 mmol/L [facility] Anion gap 12 2 - 15 mmol/L [facility] BUN 12 6 - 25 mg/dL [facility] Creatinine 0.95 0.80 - 1.30 mg/dL [facility] Glucose 96 70 - 199 mg/dL [facility] Comment: Interpretive Data Fasting glucose >/= [...] classification and Diagnosis of Diabetes Diabetes Care 202; 46: S19-S40. Current interpretive data was last revised 2022. Calcium 9.6 8.5 - 10.3 mg/dL [facility] Bilirubin, total 0.8 0.1 - 1.2 mg/dL [facility] Protein, pl 6.8 6.5 - 8.5 g/dL [facility] Albumin 4.1 3.5 - 5.0 g/dL [facility] Alk phos 68 40 - 130 Units/L [facility] ALT 17 7 - 55 Units/L [facility] AST 19 10 - 50 Units/L [facility] Comment:Slightly Hemolyzed S pecimen Blood 06/19/2024 2:57 PM GARAGE HAND 06/19/2024 3:23 PM GARAGE HAND Franck Ruvalcaba MD LAB BLOOD ORDERABLES Fin al Result [facility] [address] Department [place] [address] from Last 3 Months Insurance T MEDICARE T MEDICARE MEDICARE [facility] [id number] Advance Directives For more information, please contact: [phone] * Full Code (Latest Code Status on File) Date Activated Date Inactivated Comments 04/30/2022 3:22 AM 05/03/2022 5:32 PM Care Teams Well Control Instructor Relationship Specialty Start Date End Date Johan Montiel MD [address] [place] [address] PCP - General Family Medicine 06/16/21 Franck Ruvalcaba MD [address] [facility] [address] [place] [address] Conduit Mechanic Cardiology 10/29/21
--- OUTSIDE RECORDS SUMMARY | 2024-07-29 08:31 | XMS_ITS | Encounter Summary ---
Author Organization [facility] Address [address] [place] [id number] Care Team Providers Care Playground Director Name Role Phone Bobby Wilkins MD Primary Care Provider [phone] Lionel Shea MD Unavailable [phone] Johan Montiel MD Primary Care Provider [phone] Encounter Details Date Type Department Care Team (Late st Contact Info) Description 10/01/2018 Abstract [facility] CONVERSION [address] [address] , Generic Conversion, Social History Tobacco Use Types Packs/Day Years Used Date Smoking Tobacco: Smoker, Current Status Unknown Alcohol Use Standard Drinks/Week Comments Yes 0 (1 standard drink = 0.6 oz pur e alcohol) occasional Sex and Gender Information Value Date Recorded Sex Assigned at Not on file Legal Sex Male 10:52 PM CDT Gender Identity Not on file Sexual Orientation Not on file documented as of this encounter Plan of Treatment Not on file documented as of this encounter Visit Diagnoses Not on filedocumented in this encounter Additional Health Concerns Infection Onset Date Last Indicated Resolved Time COVID-19 Rule Out 02/14/2020 02/14/2020 02/16/2020 5:44 PM CDT COVID-19 Confirmed 02/14/2020 02/14/2020 0 12:34 AM ORTHODONTIC BAND MAKER COVID-19 Rule Out 04/28/2022 04/28/2022 04/28/2022 1:09 PM ORTHODONTIC BAND MAKER documented as of this encounter Care Teams Playground Director Relationship Specialty Start Date End Date Bobby Wilkins MD [address] [place] [address] [place] [phone] PCP - General FAMILY PRACTICE 07/13/18 04/27/22 Johan Montiel MD [address] [place] [phone] PCP - General FAMILY PRACTICE 04/28/22 Lionel Shea MD [address] [place] [address] [employer] Program Coordinator CARDIOVASCULAR DISEASE 07/13/18 documented as of this encounter
--- OUTSIDE RECORDS SUMMARY | 2024-07-29 08:31 | XMS_ITS | Clinical Summary ---
Author Organization [facility] Address [address] [place] [id number] Care Team Providers Care Wire Hanger Name Role Phone Lionel Shea MD Unavailable [phone] Johan Montiel MD Primary Care Provider Allergies Active Allergy Reactions Criticality Noted Date Comments Penicillins Hives,Rash Medium 10/04/2015 Medications montelukast (SINGULAIR) 10 MG tablet Singulair (montelukast) Tablet 10 mg; take 1 tablet by mouth at bedtime; 0; 27-Jun-2009; Active 0 Active fluticasone-khai meterol (ADVAIR DISKUS) 250-50 MCG/DOSE inhaler Inhale 1 puff into the lungs 2 (two) times daily. Active tiotropium 2.5 MCG/ACT inhaler (SPIRIVA RESPIMAT) Inhale 2 puffs into the lungs daily. Please provide assembled. Active Family History Medical History Relation Comments Diabetes Other Heart Disease Other Hypertension Other [facility] Other Relation Status Comments Other Social History Tobacco Use Types Packs/Day Years Used Date Smoking Tobacco: Smoker, Current Status Unknown Tobacco Cessation:Ready to Q uit: Not Asked; Counseling Given: Not Answered Alcohol Use Standard Drinks/Week Comments Yes 0 (1 standard drink = 0.6 oz pur e alcohol) occasional Sex and Gender Information Value Date Recorded Sex Assigned at Not on file Legal Sex Male 10:52 PM CDT Gender Identity Not on file Sexual Orientation Not on file Last Filed Vital Signs Vital Sign Reading Time Taken Comments Blood Pressure 117/58 07/04/2009 7:15 AM ACID DUMPER Pulse 50 07/04/2009 7:15 AM ACID DUMPER Temperature - - Respiratory Rate 10 07/04/2009 7:15 AM ACID DUMPER Oxygen Saturation - - Inhaled Oxygen Concentration - - Weight 93 kg (205 lb) 07/04/2009 7:15 AM ACID DUMPER Height 170.2 cm (5' 7 ) 07/04/2009 7:15 AM ACID DUMPER Body Mass Index 32.11 07/04/2009 7:15 AM ACID DUMPER Plan of Treatment Health Maintenance Due Date Last Done Comments Colorectal Cancer Screening Colonoscopy (10 Years) 1950 Hepatitis C 1968 DTaP, Tdap and Td Vaccines ( 1 - Tdap) 1969 Zoster Vaccines (1 of 2) 2000 Annual Medicare Wellness Visit 2015 Pneumococcal Vaccine: 65+ Years (2 of 2 - PPSV23 or PCV20) 03/03/2017 01/06/2017 COVID-19 Vaccine (3 - 2023-2 5 season) 2023 07/19/2020, 06/21/2020 RSV Immunization or 60+ Years (1 - 1-dose 75+ series) 2025 Meningococcal B Vaccine Aged Out No l onger eligible based on patient's age to complete this topic Meningococcal Vaccine Aged Out No ra adwoa eligible based on patient's age to complete this topic RSV Immunizations Under 20 Months Aged Out No longer eligible b ased on patient's age to complete this topic Insurance MEDICARE [place] [facility] AET[employer] Care Teams Wire Hanger Relationship Specialty Start Date End Date Johan Montiel MD [address] [place] [phone] PCP - General FAMILY PRACTICE 04/28/22 Lionel Shea MD [address] [place] [address] [employer] Consultant CARDIOVASCULAR DISEASE 07/13/18
[2024-07-29 08:44] LABS: Basophils Absolute Auto 0.08 K/mm3 (0.00-0.10); Basophils Percent Auto 1.4 % (0.0-1.0); Eosinophils Percent Auto 8.7 % (1.0-6.0); Hematocrit 42.8 % (37.0-46.0); Hemoglobin 13.9 g/dL (12.4-15.3); Immature Granulocyte Absolute 0.01 K/mm3 (0.00-0.00); Immature Granulocyte Percent A 0.2 % (0.0-0.0); Lymphocytes Absolute Auto 2.34 K/mm3 (1.10-4.50); Lymphocytes Percent Auto 40.9 % (18.0-42.0); Mean Corpuscular HGB Conc 32.5 g/dL (32-36); Mean Corpuscular Volume 92.2 fL (78.0-102.0); Mean Platelet Volume 9.1 fl (8.7-11.0); Monocytes Absolute Auto 0.56 K/mm3 (0.10-0.90); Monocytes Percent Auto 9.8 % (2.0-11.0); Neutrophils Absolute Auto 2.23 K/mm3 (1.70-7.20); Platelet Count Result 181 K/mm3 (150-420); Red Blood Count 4.64 M/mm3 (4.70-6.10); Red Cell Distribution Width 12.4 % (11.6-14.4); White Blood Count 5.7 K/mm3 (4.8-10.8)
[2024-07-29 09:21] LABS: Alanine Aminotransferase 15 U/L (16-63); Albumin Level 3.8 g/dL (3.4-5.0); Alkaline Phosphatase 94 U/L (46-116); Anion Gap 7 mmol/L (4-12); Aspartate Amino Transferase < 10 U/L (15-37); Bilirubin,Total 1.5 mg/dL (0.00-1.00); Blood Urea Nitrogen 16 mg/dL (7-18); Calcium 9.6 mg/dL (8.5-10.1); Carbon Dioxide 28 mmol/L (21-32); Chloride 107 mmol/L (98-108); Cholesterol 192 mg/dL (0-200); Estimated Glomerular Filt Rate > 60; Glucose 101 mg/dL (70-99); HDL Direct 58 mg/dL (40-60); LDL Cholesterol Calculated 115 mg/dL (<130); Osmolality Calculated 295 mOsm/kg (285-295); Potassium 4.6 mmol/L (3.5-5.1); Sodium 142 mmol/L (136-145); Total Protein 6.6 g/dL (6.4-8.2); Triglycerides 95 mg/dL (0-150)
== END 2024-07-29 08:22 | disposition home or self-care (01) ==
PROVIDERS: PCP Family Medicine; Visit Provider Family Medicine
DX: E78.2 Mixed hyperlipidemia (principal); Z79.01 Long term (current) use of anticoagulants
CPT/HCPCS: 36415; 80053; 80061; 85025